=== PATIENT | female | born 1990 ===

== ENCOUNTER 2022-08-23 01:41 | Inpatient (IN) | payer OTHER ==
[2022-08-23 01:56] VITALS: BMI 25.7
[2022-08-23] MEDS ORDERED: MAGNESIUM HYDROX 2400MG/30ML ORAL SUSPENSION 30 ML CUP PO PRN (02:39)
[2022-08-23] MEDS ORDERED: ONDANSETRON *ODT* 4 MG TABLET SL PRN (02:39)
[2022-08-23] MEDS ORDERED: MAG HYDROX/AL HYDROX/SIMETH 30 ML UNIT-DOSE CUP PO PRN (02:39)
[2022-08-23] MEDS ORDERED: MAGNESIUM CITRATE 300 ML BOTTLE PO PRN (02:39)
[2022-08-23] MEDS ORDERED: guaiFENesin 200 MG/10 ML 10 ML UNIT-DOSE CUPS PO PRN (02:39)
[2022-08-23] MEDS ORDERED: IBUPROFEN 600 MG TABLET (FP) PO PRN (02:39)
[2022-08-23] MEDS ORDERED: IBUPROFEN 400 MG TABLET (FP) PO PRN (02:39)
[2022-08-23] MEDS ORDERED: BENZOCAINE/MENTHOL (CHLORASEPTIC ) LOZENGE MM PRN (02:39)
[2022-08-23] MEDS ORDERED: BISMUTH SUBSALICYLATE 524 MG/30 ML PO PRN (02:39)
[2022-08-23] MEDS ORDERED: NICOTINE POLACRILEX 2 MG GUM BUC PRN (02:39)
[2022-08-23] MEDS ORDERED: P-EPHED 60MG/TRIPROLIDI 2.5MG TABLET PO PRN (02:39)
[2022-08-23] MEDS ORDERED: ACETAMINOPHEN 325 MG TABLET (FP) PO PRN ×2 (02:39)
[2022-08-23] MEDS ORDERED: DICYCLOMINE HCL 10 MG CAPSULE PO PRN (02:39)
[2022-08-23] MEDS ORDERED: LOPERAMIDE HCL 2 MG CAPSULE PO PRN (02:39)
[2022-08-23] MEDS: chlordiazePOXIDE HCL 25 MG CAPSULE PO PRN (03:21)
[2022-08-23] MEDS: chlordiazePOXIDE HCL 25 MG CAPSULE PO SCH ×4 (05:30→22:38)
[2022-08-23] MEDS: METHOCARBAMOL 500 MG TABLET PO PRN ×2 (10:18→22:38)
[2022-08-23] MEDS: PRENATAL VITAMINS W/ FOLIC ACID TABLET (FP) PO SCH (10:18)
[2022-08-23] MEDS: NICOTINE 14 MG/24 HOURS TOPICAL PATCH TD SCH (10:19)
[2022-08-23] MEDS ORDERED: MELATONIN 5 MG TABLETS PO SCH (22:00)
[2022-08-23] MEDS: THIAMINE HCL 100 MG TABLET (FP) PO SCH (22:38)
[2022-08-24] MEDS: chlordiazePOXIDE HCL 25 MG CAPSULE PO SCH ×4 (05:45→22:18)
[2022-08-24] MEDS: NICOTINE 14 MG/24 HOURS TOPICAL PATCH TD SCH (10:55)
[2022-08-24] MEDS: METHOCARBAMOL 500 MG TABLET PO PRN (10:55)
[2022-08-24] MEDS: PRENATAL VITAMINS W/ FOLIC ACID TABLET (FP) PO SCH (10:55)
[2022-08-24] MEDS: chlordiazePOXIDE HCL 25 MG CAPSULE PO PRN (14:02)
[2022-08-24] MEDS: THIAMINE HCL 100 MG TABLET (FP) PO SCH (22:17)
[2022-08-25] MEDS ORDERED: chlordiazePOXIDE HCL 10 MG CAPSULE PO PRN
[2022-08-25] MEDS: chlordiazePOXIDE HCL 10 MG CAPSULE PO SCH ×4 (05:54→22:34)
[2022-08-25] MEDS: PRENATAL VITAMINS W/ FOLIC ACID TABLET (FP) PO SCH (10:40)
[2022-08-25] MEDS: NICOTINE 14 MG/24 HOURS TOPICAL PATCH TD SCH (10:42)
[2022-08-25 13:25] LABS: HEMATOCRIT 39.3 % (32.4-45.2); MCH 30.4 pg (25.7-33.7); MEAN CELL VOLUME 92.2 fl (80-96); MEAN PLT VOLUME 8.2 fl (7.5-11.1); PLATELET COUNT 171 10^3/uL (134-434); RBC 4.26 M/mm3 (3.60-5.2); RDW 13.2 % (11.6-15.6); WHITE BLOOD COUNT 5.5 K/mm3 (4.0-10.0)
[2022-08-25 14:27] LABS: CALCIUM 8.6 mg/dL (8.5-10.1)
[2022-08-25 14:28] LABS: ALBUMIN 3.3 g/dl (3.4-5.0); BLOOD UREA NITROGEN 14.9 mg/dL (7-18)
[2022-08-25 14:31] LABS: CREATININE 0.8 mg/dL (0.55-1.3)
[2022-08-25 14:32] LABS: BILIRUBIN,TOTAL 0.4 mg/dL (0.2-1); TOT PROT 6.1 g/dl (6.4-8.2)
[2022-08-25] MEDS: THIAMINE HCL 100 MG TABLET (FP) PO SCH (22:33)
[2022-08-26] MEDS: chlordiazePOXIDE HCL 10 MG CAPSULE PO SCH ×2 (05:29→17:35)
[2022-08-26] MEDS: PRENATAL VITAMINS W/ FOLIC ACID TABLET (FP) PO SCH (10:23)
[2022-08-26] MEDS: NICOTINE 14 MG/24 HOURS TOPICAL PATCH TD SCH (10:23)
[2022-08-26] MEDS: METHOCARBAMOL 500 MG TABLET PO PRN (17:35)
[2022-08-26 21:47] VITALS: BP 117/66; PULSE 99; RESP 17; TEMP 98.4
[2022-08-26] MEDS: THIAMINE HCL 100 MG TABLET (FP) PO SCH (23:27)
[2022-08-27] MEDS ORDERED: chlordiazePOXIDE HCL 10 MG CAPSULE PO ONE (05:00)
== END 2022-08-26 22:30 | disposition left against medical advice (07) | DRG 770 ==
LOC: YASAS 01:41 → Y6N 02:33
PROVIDERS: ADMIT Allergy & Immunology; ATTEND Surgery
PROC: HZ2ZZZZ Detoxification Services for Substance Abuse Treatment (ICD-10-PCS; principal; 2022-08-23)
DX: F10.230 Alcohol dependence with withdrawal, uncomplicated (principal); F17.210 Nicotine dependence, cigarettes, uncomplicated; F90.9 Attention-deficit hyperactivity disorder, unspecified type; J45.20 Mild intermittent asthma, uncomplicated; Z87.19 Personal history of other diseases of the digestive system; Z88.0 Allergy status to penicillin; Z88.8 Allergy status to other drugs, medicaments and biological substances
CPT/HCPCS: 36415; 80053; 81025; 85027; 86780; 93005; 93010; C9803-CS; U0003; U0005